=== PATIENT | female | born 1980 | race Caucasian/White ===

== ENCOUNTER 2018-12-27 10:52 | Inpatient (IN) | payer OTHER ==
[2018-12-27] MEDS ORDERED: LACTATED RINGER'S 1,000 ML IV (12:09)
[2018-12-27 12:22] LABS: ADD MAN DIFF? NO
[2018-12-27 12:24] LABS: WHITE BLOOD COUNT 9.4 10^3/ul (4.8-10.8)
[2018-12-27 12:24] LABS: BASOPHILS % 0.4 % (0.0-2.0); EOSINOPHILS # 0.1 10^3/ul (0.0-0.5); EOSINOPHILS % 0.9 % (0.0-7.0); HEMATOCRIT 37.1 % (37.0-47.0); HEMOGLOBIN 12.4 g/dl (12.0-16.0); LYMPHOCYTES # 2.1 10^3/ul (0.8-2.9); LYMPHOCYTES % 22.2 % (15.0-51.0); MEAN CORPUSCULAR HEMOGLOBIN 28.1 pg (29.0-33.0); MEAN CORPUSCULAR HGB CONC 33.4 g/dl (32.0-37.0); MEAN CORPUSCULAR VOLUME 83.9 fl (82.0-101.0); MEAN PLATELET VOLUME 9.6 fl (7.4-10.4); MONOCYTE # 0.8 10^3/ul (0.3-0.9); MONOCYTES % 8.5 % (0.0-11.0); NEUTROPHIL # 6.4 10^3/ul (1.6-7.5); NEUTROPHILS % 67.7 % (39.0-77.0); PLATELET COUNT 389 10^3/UL (140-415); RED BLOOD COUNT 4.42 10^6/ul (4.20-5.40); RED CELL DISTRIBUTION WIDTH 13.2 % (11.5-14.5)
[2018-12-27] MEDS: LACTATED RINGER'S 1,000 ML IV ×2 (12:25→19:27)
[2018-12-27] MEDS ORDERED: OXYTOCIN 30 UNITS/LR 500 ML IV ×2 (12:30→21:30)
[2018-12-27] MEDS ORDERED: LIDOCAINE 1% (MPF) 30 ML INJ INJ (12:30)
[2018-12-27] MEDS ORDERED: MISOPROSTOL 200 MCG TAB PR ×2 (12:30→21:30)
[2018-12-27] MEDS ORDERED: CARBOPROST 250 MCG INJ IM ×2 (12:30→21:30)
[2018-12-27] MEDS ORDERED: METHYLERGONOVINE 0.2 MG INJ IM ×2 (12:30→21:30)
[2018-12-27 12:32] LABS: INR 0.87; PARTIAL THROMBOPLASTIN TIME 28.8 Sec (23.0-35.0); PROTIME 11.9 Sec (11.9-14.9); PT RATIO 0.9
[2018-12-27 13:08] LABS: HEPATITIS B SURFACE ANTIGEN NEGATIVE (NEGATIVE)
[2018-12-27] MEDS: OXYTOCIN 30 UNITS/LR 500 ML IV ×4 (14:24→22:54)
[2018-12-27] MEDS ORDERED: AMPICILLIN 1 GM/NS (PMX) 50 ML IV (16:30)
[2018-12-27] MEDS: AMPICILLIN 2 GM/NS (PMX) 100 ML IV (17:20)
[2018-12-27 20:55] LABS: RAPID PLASMA REAGIN NONREACTIVE (NR)
[2018-12-27] MEDS ORDERED: BENZOCAINE 20% 56 ML SPRAY TOP (21:30)
[2018-12-27] MEDS ORDERED: ONDANSETRON 4 MG INJ IV (21:30)
[2018-12-27] MEDS ORDERED: ACETAMINOPHEN 325 MG TAB PO ×2 (21:30)
[2018-12-27] MEDS ORDERED: DIBUCAINE 1% 30 GM OINT TOP (21:30)
[2018-12-27] MEDS ORDERED: SENNA/DOCUSATE NA (8.6MG/50MG) TAB PO (21:30)
[2018-12-27] MEDS ORDERED: MAGNESIUM HYDROXIDE 30ML CUP PO (21:30)
[2018-12-27] MEDS ORDERED: LANOLIN HPA 1 PKT TOP (21:30)
[2018-12-27] MEDS ORDERED: WITCH HAZEL/GLYCERIN PAD PR (21:30)
[2018-12-27] MEDS: LACTATED RINGER'S 1,000 ML IV* (22:55)
[2018-12-28] MEDS: IBUPROFEN 600 MG TAB PO ×2 (00:37→06:11)
[2018-12-28] MEDS: LACTATED RINGER'S 1,000 ML IV* (05:21)
[2018-12-28 07:46] LABS: ADD MAN DIFF? NO
[2018-12-28 07:54] LABS: BASOPHIL # 0.1 10^3/ul (0.0-0.1); BASOPHILS % 0.4 % (0.0-2.0); EOSINOPHILS # 0.2 10^3/ul (0.0-0.5); EOSINOPHILS % 1.4 % (0.0-7.0); HEMATOCRIT 35.5 % (37.0-47.0); HEMOGLOBIN 11.7 g/dl (12.0-16.0); LYMPHOCYTES # 3.3 10^3/ul (0.8-2.9); MEAN CORPUSCULAR HEMOGLOBIN 27.9 pg (29.0-33.0); MEAN CORPUSCULAR VOLUME 84.5 fl (82.0-101.0); MEAN PLATELET VOLUME 9.4 fl (7.4-10.4); MONOCYTES % 8.6 % (0.0-11.0); NEUTROPHIL # 7.2 10^3/ul (1.6-7.5); NEUTROPHILS % 61.3 % (39.0-77.0); PLATELET COUNT 338 10^3/UL (140-415); RED CELL DISTRIBUTION WIDTH 13.1 % (11.5-14.5)
[2018-12-28 07:54] LABS: WHITE BLOOD COUNT 11.7 10^3/ul (4.8-10.8)
[2018-12-28] MEDS: MAGNESIUM HYDROXIDE 30ML CUP PO (17:50)
[2018-12-28] MEDS: BISACODYL 10 MG SUPP PR (17:50)
[2018-12-29] MEDS: IBUPROFEN 600 MG TAB PO (03:26)
[2018-12-29] MEDS: MAGNESIUM HYDROXIDE 30ML CUP PO (06:04)
[2018-12-29] MEDS: BISACODYL 10 MG SUPP PR (06:05)
== END 2018-12-29 12:20 | disposition home or self-care (01) | DRG 807 ==
LOC: OBT 10:52 → L-D 10:59 → PP1 22:01
PROVIDERS: Obstetrics & Gynecology
PROC: 10E0XZZ Delivery of Products of Conception, External Approach (ICD-10-PCS; principal; 2018-12-27)
PROC: 0HQ9XZZ Repair Perineum Skin, External Approach (ICD-10-PCS; 2018-12-27)
DX: O99.824 Streptococcus B carrier state complicating childbirth (principal); O70.0 First degree perineal laceration during delivery; Z3A.40 40 weeks gestation of pregnancy; Z37.0 Single live birth
CPT/HCPCS: 76815; 85025; 85610; 85730; 86592; 86850; 86900; 86901; 87340